=== PATIENT | male | born 1960 | race Caucasian/White ===

== ENCOUNTER 2020-08-25 05:25 | Day surgery (SDC) | payer BC ==
[2020-08-18 14:45] LABS: BASOPHILS # (AUTO) 0.1 X10'3 (0-0.2); BASOPHILS % (AUTO) 0.1 % (0-1); EOSINOPHILS # (AUTO) 0.4 X10'3 (0-0.9); EOSINOPHILS % (AUTO) 0.3 % (0-6); LYMPHOCYTES # (AUTO) 104.9 X10'3 (1.1-4.8); LYMPHOCYTES % (AUTO) 94.8 % (21-51); MEAN CORPUSCULAR HEMOGLOBIN 31.7 PG (27.0-31.0); MEAN CORPUSCULAR HGB CONC 31.6 g/dL (33.0-36.5); MEAN CORPUSCULAR VOLUME 100.3 FL (78-98); MEAN PLATELET VOLUME 9.6 FL (7.4-10.4); MONOCYTES % (AUTO) 1.8 % (2-12); NEUTROPHILS # (AUTO) 3.4 X10'3 (1.8-7.7); PRE OP HEMATOCRIT 47.8 % (42.0-52.0); PRE OP HEMOGLOBIN 15.1 g/dL (14.0-17.9); PRE OP PLATELET COUNT 141 X10'3 (140-440); RED BLOOD COUNT 4.77 X10'6 (4.70-6.10); RED CELL DISTRIBUTION WIDTH 14.2 % (11.5-14.5)
[2020-08-18 14:53] LABS: ALBUMIN 3.9 G/DL (3.4-5.0); ALBUMIN/GLOBULIN RATIO 1.4 (1.1-1.5); ALKALINE PHOSPHATASE 180 IU/L (46-116); BLOOD UREA NITROGEN 21 MG/DL (7-18); BUN/CREATININE RATIO 26.3 (5.4-32.0); CALCIUM 8.6 MG/DL (8.5-10.1); CHLORIDE 108 MMOL/L (99-107); PRE OP ALT 34 U/L (30-65); PRE OP ANION GAP 11 (8-16); PRE OP AST 30 U/L (10-37); PRE OP BILIRUB, TOTAL 0.6 MG/DL (0.0-1.0); PRE OP GLUCOSE 123 MG/DL (70-104); PRE OP POTASSIUM 4.1 MMOL/L (3.4-5.1); PRE OP SODIUM 145 MMOL/L (135-145); TOTAL CARBON DIOXIDE 26.2 MMOL/L (24-32); TOTAL PROTEIN 6.6 G/DL (6.4-8.2); eGFR > 90 ML/MIN
[2020-08-18 16:28] LABS: TOTAL CELLS COUNTED 200
[2020-08-18 16:29] LABS: EOSINOPHILS % (MANUAL) 0 % (0-6); PLATELET ESTIMATE NORMAL; SMUDGE CELLS 3+
[2020-08-18 16:30] LABS: HYPOCHROMASIA 1+
[~2020-08-25] VITALS: Ht 177.8 cm; Wt 99.7 kg
[2020-08-25] VITALS (21 sets, daily range): BP systolic 77–138; BP diastolic 52–94
[~2020-08-25 05:25] MED LIST: CBD PO; CITA20TA28 PO; MULT-1085 PO; OREGANO PO; ZINC50TA67 PO; [UNRECOGNIZED DRUG - MIXTURE] PO; ringers solution, lacted 1,000 ML IV SCH
[2020-08-25] MEDS ORDERED: INDOCYANINE GREEN 25 MG/10 ML VIAL IV ONE ×2 (05:30)
[2020-08-25] MEDS ORDERED: famotidine 20mg tablet PO ONE (05:30)
[2020-08-25] MEDS ORDERED: ceFAZolin 2gm in dextrose, iso 50 ML IV ONE (05:30)
[2020-08-25] MEDS ORDERED: TEST200V10 IM (06:11)
--- NOTE | 2020-08-25 06:30 | NUR ---
IC GREEN BAR CODE WOULD NOT SCAN. ENTERED MANUALLY.
[2020-08-25] MEDS ORDERED: BUPIVAcaine/PF 2.5 mg/ml (0.25%) 30ml vial ONE (06:54)
[2020-08-25] MEDS ORDERED: LIDOcaine 1% 30ml preserv. free vial ONE (06:54)
[2020-08-25] MEDS ORDERED: fentaNYL/PF 50MCG/1 ML 2ML syringe ONE (07:19)
[2020-08-25] MEDS ORDERED: midazolam 2 mg/2 ml injection ONE (07:20)
[2020-08-25] MEDS ORDERED: propofol inj 20 ML IV ONE (07:23)
[2020-08-25] MEDS ORDERED: LIDOcaine 2% (20mg/ml) 5ml vial ONE (07:23)
[2020-08-25] MEDS ORDERED: rocuronium 10mg/ml inj IV ONE (07:23)
[2020-08-25] MEDS ORDERED: sevoflurane 250ml liquid IH ONE (07:34)
[2020-08-25] MEDS ORDERED: proCHLORperazine 10 MG/2 ml inj IV PRN (07:35)
[2020-08-25] MEDS ORDERED: ringers solution, lacted 1,000 ML IV SCH (07:35)
[2020-08-25] MEDS ORDERED: ondansetron/PF 4mg/2ml inj IV PRN (07:35)
[2020-08-25] MEDS ORDERED: morphine 4 MG/ML inj SYRINge IV PRN (07:35)
[2020-08-25] MEDS ORDERED: meperidine/PF 25mg/ml syringe IV PRN ×2 (07:35)
[2020-08-25] MEDS ORDERED: morphine 2 MG/ML inj. syringe IV PRN (07:35)
[2020-08-25] MEDS ORDERED: acetaminophen 1,000mg/100ml IV 100 ML IV ONE (08:35)
[2020-08-25] MEDS ORDERED: neostigmine methylsulfate 1 MG/ML 10ml vial ONE (08:35)
[2020-08-25] MEDS ORDERED: glycopyrrolate 0.2mg/ml inj ONE (08:35)
[2020-08-25] MEDS ORDERED: ondansetron/PF 4mg/2ml inj ONE (08:35)
--- NOTE | 2020-08-25 08:46 | NUR ---
Received from OR via [facility], accompanied by Anesthesiologist DR PAIZ and report given by Anesthesiologist. PT DROWSY, NO S/S OF PAIN, ABDOMEN W/4 LAP SITES W/BANDAIDS CDI. Addendum: 08/25/20 at 0908 by Floresita Mccrary RN Amended: Links added.
[2020-08-25] MEDS ORDERED: HYDROcodone/acetaminophen 10/325mg tab PO PRN (09:15)
[2020-08-25] MEDS ORDERED: HYDROcodone/acetaminophen 5mg/325mg tablet PO PRN (09:15)
[2020-08-25] MEDS: meperidine/PF 25mg/ml syringe IV PRN ×2 (09:16→09:23)
--- NOTE | 2020-08-25 11:31 | NUR ---
PT WAS DOING VERY WELL, DRESSED D/C INSTRUCTIONS GIVEN AND GONE OVER W/PT , PT UP AND AMBULATING, PUT IN W/C FOR D/C TO HOME, WHILE AWAITING FOR PTS RIDE, PT BECAME DIZZY, NAUSEATED, REATTACHED TO CM, HR 60-S, NSR, BP 77/52, SA02 92% ON RA. COOL WASHCLOTH APPLIED TO PTS FACE/HEAD, DR NAIR HERE AND AWARE. PT STATED WAS FEELING BETTER, CRACKERS GIVEN AND A FEW GLASSES OF WATER, AFTER 15 MINUTES OR SO, BP IMPROVED PT FEELING MUCH BETTER. PT UP AND AMBULATED, STEADY ON FEET, OKAY TO D/C HOME, AWAITING RIDE HOME. Addendum: 08/25/20 at 1138 by Floresita Mccrary RN Amended: Links added.
--- NOTE | 2020-08-25 12:16 | NUR ---
PT REMAINS STABLE, UP AND AMBULATING, VOIDED. D/C INSTRUCTIONS GIVEN AND GONE OVER W/PT AND PTS WHO VERBALIZED UNDERSTANDING. PT D/CD TO HOME VIA W/C TO PRIVATE VEHICLE W/O INCIDENT. Addendum: 08/25/20 at 1312 by Floresita Mccrary RN Amended: Links added.
== END 2020-08-25 12:16 | disposition home or self-care (01) ==
LOC: PAS 05:25
PROVIDERS: ATTEND Surgery
DX: K80.10 Calculus of gallbladder with chronic cholecystitis without obstruction (principal); F41.9 Anxiety disorder, unspecified; F32.9 Major depressive disorder, single episode, unspecified; Z98.890 Other specified postprocedural states; Z88.8 Allergy status to other drugs, medicaments and biological substances; Z88.1 Allergy status to other antibiotic agents; G47.33 Obstructive sleep apnea (adult) (pediatric); F17.290 Nicotine dependence, other tobacco product, uncomplicated; Z85.6 Personal history of leukemia; Z88.2 Allergy status to sulfonamides; Z20.822 Contact with and (suspected) exposure to COVID-19; Z79.899 Other long term (current) drug therapy; Z83.2 Family history of diseases of the blood and blood-forming organs and certain disorders involving the immune mechanism; Z81.8 Family history of other mental and behavioral disorders; Z80.6 Family history of leukemia
CPT/HCPCS: 36415; 47563; 80053; 82948; 85025; 87635; 93005; J0131; J2001; J2175; J2250; J2405; J2704; J2710; J3010; J3490; J7120; 85007; A4215; A4618

== ENCOUNTER 2021-08-06 12:20 | Emergency (ER) | payer BC ==
[~2021-08-06] VITALS: Ht 177.8 cm; Wt 91.4 kg
[~2021-08-06 12:20] MED LIST changes: +TEST200V33 IM; -ringers solution, lacted 1,000 ML IV SCH
[2021-08-06] MEDS ORDERED: normal saline 1000ML IV soln IVB ONE (12:45)
[2021-08-06] MEDS ORDERED: acetaminophen 325mg tablet PO ONE ×2 (12:45→17:00)
[2021-08-06 13:19] LABS: BASOPHILS # (AUTO) 0.1 X10'3 (0-0.2); BASOPHILS % (AUTO) 0.1 % (0-1); EOSINOPHILS % (AUTO) 0 % (0-6)
[2021-08-06 13:22] LABS: HEMATOCRIT 46.1 % (42.0-52.0); LYMPHOCYTES # (AUTO) 86.3 X10'3 (1.1-4.8); LYMPHOCYTES % (AUTO) 92.8 % (21-51); MEAN CORPUSCULAR HEMOGLOBIN 31.6 PG (27.0-31.0); MEAN CORPUSCULAR HGB CONC 32.5 g/dL (33.0-36.5); MEAN CORPUSCULAR VOLUME 97.4 FL (78-98); MEAN PLATELET VOLUME 9.6 FL (7.4-10.4); MONOCYTES # (AUTO) 1.5 X10'3 (0-0.9); MONOCYTES % (AUTO) 1.6 % (2-12); NEUTROPHILS # (AUTO) 5.1 X10'3 (1.8-7.7); NEUTROPHILS % (AUTO) 5.5 % (42-75); PLATELET COUNT 130 X10'3 (140-440); RED BLOOD COUNT 4.74 X10'6 (4.70-6.10)
[2021-08-06 13:32] LABS: ALANINE AMINOTRANSFERASE 107 U/L (12-78); ALBUMIN 3.1 G/DL (3.4-5.0); ALKALINE PHOSPHATASE 116 IU/L (46-116); ANION GAP 11 (8-16); ASPARTATE AMINO TRANSFERASE 63 U/L (10-37); BILIRUBIN,TOTAL 0.7 MG/DL (0.1-1.0); BLOOD UREA NITROGEN 13 MG/DL (7-18); BUN/CREATININE RATIO 14.3 (5.4-32.0); CALCIUM 8.2 MG/DL (8.5-10.1); CHLORIDE 102 MMOL/L (99-107); CREATININE 0.91 MG/DL (0.60-1.10); GLUCOSE 147 MG/DL (70-104); POTASSIUM 4.6 MMOL/L (3.5-5.1); SODIUM 135 MMOL/L (135-145); TOTAL CARBON DIOXIDE 22.4 MMOL/L (24-32); TOTAL PROTEIN 6.3 G/DL (6.4-8.2); eGFR 84 ML/MIN
[2021-08-06 13:48] LABS: SMUDGE CELLS 4+; TOTAL CELLS COUNTED 100
[2021-08-06 13:49] LABS: PLATELET ESTIMATE DECREASED
[2021-08-06] MEDS ORDERED: iohexol 350MG/ML 100ml bottle IV ONE (13:52)
[2021-08-06 15:45] LABS: D-DIMER 0.65 MG/L FEU (0-0.50)
[2021-08-06] MEDS ORDERED: BENZ-38 PO ×2 (17:38)
[2021-08-06] MEDS ORDERED: ALB0.5UD IH ×2 (18:02)
[2021-08-06] MEDS ORDERED: GABA-530 PO ×2 (18:02)
[2021-08-06 18:04] VITALS: BP 119/79
== END 2021-08-06 18:06 | disposition home or self-care (01) ==
LOC: ER 12:21
DX: U07.1 COVID-19 (principal); J12.82 Pneumonia due to coronavirus disease 2019; C91.10 Chronic lymphocytic leukemia of B-cell type not having achieved remission; Z88.2 Allergy status to sulfonamides; Z88.6 Allergy status to analgesic agent; Z79.899 Other long term (current) drug therapy
CPT/HCPCS: 36415; 71275; 80053; 83605; 84145; 85007; 85025; 85379; 87040; 87502; 87503; 87635; 93005; 96360; 96361; 99285; C9803; J7030; Q9967

== ENCOUNTER 2021-08-07 21:58 | Inpatient (IN) | payer BC ==
[~2021-08-07] VITALS: Ht 177.8 cm; Wt 93.2 kg
[~2021-08-07 21:58] MED LIST changes: +ALB0.5UD IH; +BENZ-38 PO; +GABA-530 PO
[2021-08-08 00:19] LABS: EOSINOPHILS % (AUTO) 0 % (0-6); LYMPHOCYTES % (AUTO) 90.1 % (21-51); RED BLOOD COUNT 4.56 X10'6 (4.70-6.10)
[2021-08-08 00:22] LABS: BASOPHILS # (AUTO) 0.2 X10'3 (0-0.2); BASOPHILS % (AUTO) 0.2 % (0-1); HEMATOCRIT 44.3 % (42.0-52.0); HEMOGLOBIN 14.1 g/dl (14.0-17.9); LYMPHOCYTES # (AUTO) 82.8 X10'3 (1.1-4.8); MEAN CORPUSCULAR HGB CONC 31.9 g/dL (33.0-36.5); MEAN CORPUSCULAR VOLUME 97.2 FL (78-98); MEAN PLATELET VOLUME 9.8 FL (7.4-10.4); MONOCYTES # (AUTO) 1.5 X10'3 (0-0.9); MONOCYTES % (AUTO) 1.6 % (2-12); NEUTROPHILS # (AUTO) 7.5 X10'3 (1.8-7.7); NEUTROPHILS % (AUTO) 8.1 % (42-75); PLATELET COUNT 148 X10'3 (140-440); RED CELL DISTRIBUTION WIDTH 14.3 % (11.5-14.5)
[2021-08-08 00:38] LABS: ALANINE AMINOTRANSFERASE 85 U/L (12-78); ALBUMIN 2.9 G/DL (3.4-5.0); ALBUMIN/GLOBULIN RATIO 0.9 (1.1-1.5); ALKALINE PHOSPHATASE 139 IU/L (46-116); ANION GAP 8 (8-16); ASPARTATE AMINO TRANSFERASE 65 U/L (10-37); BILIRUBIN,TOTAL 0.6 MG/DL (0.1-1.0); BLOOD UREA NITROGEN 23 MG/DL (7-18); BUN/CREATININE RATIO 19.7 (5.4-32.0); CALCIUM 7.6 MG/DL (8.5-10.1); CHLORIDE 99 MMOL/L (99-107); CREATININE 1.17 MG/DL (0.60-1.10); GLUCOSE 90 MG/DL (70-104); POTASSIUM 4.6 MMOL/L (3.5-5.1); SODIUM 133 MMOL/L (135-145); TOTAL CARBON DIOXIDE 26.1 MMOL/L (24-32); TOTAL PROTEIN 6.2 G/DL (6.4-8.2); eGFR 63 ML/MIN
[2021-08-08 00:39] LABS: ANISOCYTOSIS 1+; PLATELET ESTIMATE NORMAL; SMUDGE CELLS 4+; TOTAL CELLS COUNTED 100
[2021-08-08 00:41] LABS: BILIRUBIN,DIRECT 0.2 MG/DL (0-0.3); LIPASE 186 U/L (73-393)
[2021-08-08] MEDS ORDERED: vancomycin/NS 1 GM ADD-VANTAGE 250 ML IV ONE (01:20)
[2021-08-08] MEDS ORDERED: REMDESIVIR INJ 200 MG in normal saline 100ml IV soln 100 ML IV STA (02:28)
[2021-08-08] MEDS ORDERED: cefepime 1GM/NS ADD-VANTAGE 100 ML IV ONE (02:30)
[2021-08-08] MEDS ORDERED: diltiazem 5mg/ml 5ml inj. IV ONE (02:30)
[2021-08-08] MEDS ORDERED: cefepime 1GM in D5W 50mL 50 ML IV ONE (03:05)
[2021-08-08] MEDS ORDERED: ondansetron/PF 4mg/2ml inj IV PRN (03:40)
[2021-08-08] MEDS ORDERED: potassium CL 10mEq/100ml bag 100 ML IV PRN (03:40)
[2021-08-08] MEDS ORDERED: acetaminophen 325mg tablet PO PRN (03:40)
[2021-08-08] MEDS ORDERED: magnesium Cl slow-release 64mg tablet PO PRN (03:40)
[2021-08-08] MEDS ORDERED: magnesium 2GM in 50ml NS 50 ML IV PRN (03:40)
[2021-08-08] MEDS ORDERED: potassium Cl 20 mEq SR tablet PO PRN ×2 (03:40)
[2021-08-08] MEDS ORDERED: HYDROcodone/acetaminophen 5mg/325mg tablet PO PRN (03:40)
[2021-08-08] MEDS ORDERED: magnesium 4gm in 100ml NS 100 ML IV PRN (03:40)
[2021-08-08] MEDS ORDERED: morphine 2 MG/ML inj. syringe IV PRN (03:40)
[2021-08-08 04:30] VITALS: BP 122/78
[2021-08-08 06:54] LABS: D-DIMER 1.33 MG/L FEU (0-0.50)
[2021-08-08] MEDS ORDERED: dexamethasone 4mg/ml inj IV SCH (08:00)
[2021-08-08] MEDS: K and/or MAG REPLACEMENT MC SCH ×2 (08:00→20:00)
[2021-08-08] MEDS ORDERED: acetaminophen 325mg tablet PO ONE (08:50)
[2021-08-08] MEDS ORDERED: normal saline 1000ml 1,000 ML IV ONE (08:50)
[2021-08-08] MEDS ORDERED: ketorolac trometh. 30mg/ml inj. IV ONE (09:00)
[2021-08-08] MEDS ORDERED: REMDESIVIR INJ 200 MG in normal saline 100ml IV soln 100 ML IV ONE ×2 (10:15→11:40)
[2021-08-08] MEDS ORDERED: CefTRIAXone/D5W-Rocephin 1gm 50 ML IV SCH (10:15)
[2021-08-08] MEDS ORDERED: azithromycin 250mg tablet PO SCH (10:15)
[2021-08-08] MEDS: dexamethasone 6 MG/D5W 100ml IV.soln (total 101.5ml) IV SCH ×4 (10:20→21:22)
[2021-08-08] MEDS: normal saline 1000ml 1,000 ML IV SCH (10:20)
[2021-08-08] MEDS: enoxaparin 40mg/0.4ml syringe SQ SCH ×2 (11:03→21:22)
[2021-08-08] MEDS ORDERED: GABA-530 PO (12:18)
[2021-08-08] MEDS ORDERED: BENZ-49 PO (12:19)
[2021-08-08] MEDS: CefTRIAXone/D5W-Rocephin 1gm 50 ML IV SCH (13:19)
[2021-08-08] MEDS ORDERED: benzonatate 100mg capsule PO PRN (15:45)
--- NOTE | 2021-08-08 16:13 | NUR ---
Report given to DAVEY Andrew, pt going to floor with C-pap from home & cell phone. Pts is taking pts hearing aids and wallet home.
[2021-08-08 18:00] VITALS: BP 122/85
[2021-08-08] MEDS: gabapentin 100mg capsule PO SCH (21:22)
[2021-08-08] MEDS: citalopram 20mg tablet PO SCH (21:22)
[2021-08-08 22:00] VITALS: BP 154/88
[2021-08-09 02:00] VITALS: BP 146/88
[2021-08-09 06:00] VITALS: BP 148/87
[2021-08-09] MEDS ORDERED: REMDESIVIR INJ 100 MG in normal saline 100ml IV soln 100 ML IV SCH (08:00)
[2021-08-09] MEDS: K and/or MAG REPLACEMENT MC SCH ×2 (08:00→20:00)
[2021-08-09] MEDS: CefTRIAXone/D5W-Rocephin 1gm 50 ML IV SCH (08:03)
[2021-08-09] MEDS: dexamethasone 6 MG/D5W 100ml IV.soln (total 101.5ml) IV SCH ×4 (08:03→20:34)
[2021-08-09] MEDS: acetaminophen 325mg tablet PO PRN ×2 (08:03→22:24)
[2021-08-09] MEDS: multivitamins, therapeutics tablet PO SCH (08:04)
[2021-08-09] MEDS: enoxaparin 40mg/0.4ml syringe SQ SCH ×2 (08:04→20:30)
[2021-08-09] MEDS: gabapentin 100mg capsule PO SCH ×3 (08:04→16:43)
[2021-08-09 08:20] LABS: BASOPHILS % (AUTO) 0.2 % (0-1); EOSINOPHILS % (AUTO) 0 % (0-6); MEAN CORPUSCULAR HGB CONC 31.7 g/dL (33.0-36.5); NEUTROPHILS % (AUTO) 8.2 % (42-75)
[2021-08-09 08:25] LABS: BASOPHILS # (AUTO) 0.2 X10'3 (0-0.2); LYMPHOCYTES # (AUTO) 107.1 X10'3 (1.1-4.8); LYMPHOCYTES % (AUTO) 90.2 % (21-51); MEAN CORPUSCULAR HEMOGLOBIN 31.1 PG (27.0-31.0); MEAN CORPUSCULAR VOLUME 97.9 FL (78-98); MEAN PLATELET VOLUME 9.8 FL (7.4-10.4); MONOCYTES # (AUTO) 1.7 X10'3 (0-0.9); MONOCYTES % (AUTO) 1.4 % (2-12); NEUTROPHILS # (AUTO) 9.7 X10'3 (1.8-7.7); PLATELET COUNT 166 X10'3 (140-440); RED BLOOD COUNT 4.18 X10'6 (4.70-6.10); RED CELL DISTRIBUTION WIDTH 14.2 % (11.5-14.5)
[2021-08-09 08:33] LABS: WHITE BLOOD COUNT 118.7 X10'3 (4.5-11.0)
[2021-08-09 08:51] LABS: ALANINE AMINOTRANSFERASE 71 U/L (12-78); ALBUMIN 2.4 G/DL (3.4-5.0); ALKALINE PHOSPHATASE 91 IU/L (46-116); ANION GAP 9 (8-16); ASPARTATE AMINO TRANSFERASE 50 U/L (10-37); BILIRUBIN,TOTAL 0.5 MG/DL (0.1-1.0); BLOOD UREA NITROGEN 17 MG/DL (7-18); BUN/CREATININE RATIO 24.6 (5.4-32.0); C-REACTIVE PROTEIN 13.95 MG/DL (0.0-0.5); CALCIUM 7.2 MG/DL (8.5-10.1); CHLORIDE 105 MMOL/L (99-107); CREATININE 0.69 MG/DL (0.60-1.10); GLUCOSE 158 MG/DL (70-104); LACTATE DEHYDROGENASE 339 U/L (85-227); PHOSPHORUS 2.9 MG/DL (2.3-4.5); POTASSIUM 4.1 MMOL/L (3.5-5.1); SODIUM 137 MMOL/L (135-145); TOTAL CARBON DIOXIDE 22.7 MMOL/L (24-32); TOTAL PROTEIN 4.8 G/DL (6.4-8.2); eGFR > 90 ML/MIN
[2021-08-09 09:07] LABS: D-DIMER 0.74 MG/L FEU (0-0.50)
[2021-08-09 15:40] LABS: ANISOCYTOSIS 1+; PLATELET ESTIMATE NORMAL; TOTAL CELLS COUNTED 100
[2021-08-09 15:41] LABS: SMUDGE CELLS 4+
--- NOTE | 2021-08-09 17:45 | NUR ---
Mr Rodriguez has been assessed as indicated he has been found to be both pleasant and cooperative. He uses CPAP from home most of the day. His was in to see him and assisted him with bathing. He was successfully treated for a head ache x1 this shift. He also finds comfort in having a bag of ice on his head. He does experince some shortness of breath with exertion. He is presently resting quietly
[2021-08-09 18:45] VITALS: BP 141/89
--- NOTE | 2021-08-09 19:25 | NUR ---
Patient in room ORTHO 4013. I have received report from floridalma Andrew and had the opportunity to ask questions and assume patient care. Pt. resting quietly in bed, no c/o voiced at this time.
[2021-08-09] MEDS: citalopram 20mg tablet PO SCH (20:32)
[2021-08-09 22:00] VITALS: BP 148/78
[2021-08-10] MEDS: gabapentin 100mg capsule PO SCH ×4 (00:28→22:17)
[2021-08-10 02:00] VITALS: BP 138/90
[2021-08-10] MEDS: normal saline 1000ml 1,000 ML IV SCH (04:20)
[2021-08-10 06:00] VITALS: BP 140/88
--- NOTE | 2021-08-10 06:26 | NUR ---
Problems reprioritized. Patient report given, questions answered & plan of care reviewed with DAVEY James. .
[2021-08-10 07:39] LABS: BASOPHILS % (AUTO) 0.1 % (0-1); EOSINOPHILS % (AUTO) 0 % (0-6); MEAN CORPUSCULAR HEMOGLOBIN 30.3 PG (27.0-31.0); MEAN CORPUSCULAR HGB CONC 31.2 g/dL (33.0-36.5)
[2021-08-10 07:42] LABS: BASOPHILS # (AUTO) 0.1 X10'3 (0-0.2); HEMATOCRIT 39.8 % (42.0-52.0); HEMOGLOBIN 12.4 g/dl (14.0-17.9); LYMPHOCYTES # (AUTO) 115.3 X10'3 (1.1-4.8); LYMPHOCYTES % (AUTO) 89.3 % (21-51); MEAN CORPUSCULAR VOLUME 97.4 FL (78-98); MEAN PLATELET VOLUME 9.7 FL (7.4-10.4); MONOCYTES # (AUTO) 3.3 X10'3 (0-0.9); MONOCYTES % (AUTO) 2.5 % (2-12); NEUTROPHILS # (AUTO) 10.5 X10'3 (1.8-7.7); NEUTROPHILS % (AUTO) 8.1 % (42-75); PLATELET COUNT 197 X10'3 (140-440); RED BLOOD COUNT 4.09 X10'6 (4.70-6.10); RED CELL DISTRIBUTION WIDTH 14.4 % (11.5-14.5)
[2021-08-10 07:50] LABS: ALANINE AMINOTRANSFERASE 68 U/L (12-78); ALBUMIN 2.3 G/DL (3.4-5.0); ALBUMIN/GLOBULIN RATIO 0.9 (1.1-1.5); ANION GAP 8 (8-16); ASPARTATE AMINO TRANSFERASE 41 U/L (10-37); BILIRUBIN,TOTAL 0.6 MG/DL (0.1-1.0); BLOOD UREA NITROGEN 21 MG/DL (7-18); BUN/CREATININE RATIO 29.6 (5.4-32.0); C-REACTIVE PROTEIN 6.91 MG/DL (0.0-0.5); CALCIUM 7.3 MG/DL (8.5-10.1); CHLORIDE 109 MMOL/L (99-107); CREATININE 0.71 MG/DL (0.60-1.10); GLUCOSE 146 MG/DL (70-104); LACTATE DEHYDROGENASE 300 U/L (85-227); MAGNESIUM 2.4 MG/DL (1.5-2.4); PHOSPHORUS 3.9 MG/DL (2.3-4.5); POTASSIUM 4.4 MMOL/L (3.5-5.1); SODIUM 141 MMOL/L (135-145); TOTAL CARBON DIOXIDE 24.1 MMOL/L (24-32); TOTAL PROTEIN 4.8 G/DL (6.4-8.2); WHITE BLOOD COUNT 129.2 X10'3 (4.5-11.0); eGFR > 90 ML/MIN
[2021-08-10] MEDS: K and/or MAG REPLACEMENT MC SCH ×2 (08:00→19:49)
[2021-08-10] MEDS: CefTRIAXone/D5W-Rocephin 1gm 50 ML IV SCH (08:20)
[2021-08-10] MEDS: dexamethasone 6 MG/D5W 100ml IV.soln (total 101.5ml) IV SCH ×2 (08:20)
[2021-08-10] MEDS: enoxaparin 40mg/0.4ml syringe SQ SCH ×2 (08:22→19:58)
[2021-08-10] MEDS: multivitamins, therapeutics tablet PO SCH (08:22)
[2021-08-10 12:47] LABS: TOTAL CELLS COUNTED 100
[2021-08-10 12:48] LABS: ANISOCYTOSIS 1+; PLATELET ESTIMATE NORMAL; SMUDGE CELLS 4+
[2021-08-10 15:40] VITALS: BP 128/76
--- NOTE | 2021-08-10 16:42 | NUR ---
Page to Dr Hu Message: [id number] Christopher Rodriguez- Wishes to be full code. Shaye [phone]
[2021-08-10 18:00] VITALS: BP 124/93
--- NOTE | 2021-08-10 18:15 | NUR ---
Problems reprioritized. Patient report given, questions answered & plan of care reviewed with Dylan MARISCAL.
[2021-08-10] MEDS: acetaminophen 325mg tablet PO PRN (19:57)
[2021-08-10 22:00] VITALS: BP 141/90
[2021-08-10] MEDS: citalopram 20mg tablet PO SCH (22:17)
[2021-08-11 02:00] VITALS: BP 125/80
[2021-08-11 06:00] VITALS: BP 132/84
--- NOTE | 2021-08-11 06:30 | NUR ---
Patient in room U 3015. I have received report from Dylan MARISCAL and had the opportunity to ask questions and assume patient care. Patient comfortably sleeping during report. No needs at this time.
[2021-08-11 07:15] LABS: EOSINOPHILS % (AUTO) 0 % (0-6)
[2021-08-11 07:19] LABS: D-DIMER 0.42 MG/L FEU (0-0.50)
[2021-08-11 07:22] LABS: BASOPHILS # (AUTO) 0.1 X10'3 (0-0.2); BASOPHILS % (AUTO) 0 % (0-1); HEMATOCRIT 41.3 % (42.0-52.0); HEMOGLOBIN 12.6 g/dl (14.0-17.9); LYMPHOCYTES # (AUTO) 123.4 X10'3 (1.1-4.8); LYMPHOCYTES % (AUTO) 92.2 % (21-51); MEAN CORPUSCULAR HEMOGLOBIN 30.1 PG (27.0-31.0); MEAN CORPUSCULAR HGB CONC 30.6 g/dL (33.0-36.5); MEAN CORPUSCULAR VOLUME 98.4 FL (78-98); MEAN PLATELET VOLUME 9.6 FL (7.4-10.4); MONOCYTES # (AUTO) 1.3 X10'3 (0-0.9); NEUTROPHILS # (AUTO) 9.1 X10'3 (1.8-7.7); NEUTROPHILS % (AUTO) 6.8 % (42-75); PLATELET COUNT 206 X10'3 (140-440); RED BLOOD COUNT 4.19 X10'6 (4.70-6.10); RED CELL DISTRIBUTION WIDTH 14.4 % (11.5-14.5)
[2021-08-11 07:27] LABS: WHITE BLOOD COUNT 133.9 X10'3 (4.5-11.0)
[2021-08-11 07:50] LABS: ALANINE AMINOTRANSFERASE 114 U/L (12-78); ALBUMIN 2.4 G/DL (3.4-5.0); ALBUMIN/GLOBULIN RATIO 0.9 (1.1-1.5); ANION GAP 9 (8-16); ASPARTATE AMINO TRANSFERASE 73 U/L (10-37); BILIRUBIN,TOTAL 0.7 MG/DL (0.1-1.0); BLOOD UREA NITROGEN 20 MG/DL (7-18); BUN/CREATININE RATIO 26.3 (5.4-32.0); C-REACTIVE PROTEIN 3.47 MG/DL (0.0-0.5); CALCIUM 7.4 MG/DL (8.5-10.1); CHLORIDE 108 MMOL/L (99-107); CREATININE 0.76 MG/DL (0.60-1.10); GLUCOSE 225 MG/DL (70-104); LACTATE DEHYDROGENASE 303 U/L (85-227); MAGNESIUM 2.2 MG/DL (1.5-2.4); PHOSPHORUS 3.7 MG/DL (2.3-4.5); POTASSIUM 4.5 MMOL/L (3.5-5.1); SODIUM 139 MMOL/L (135-145); TOTAL CARBON DIOXIDE 22.5 MMOL/L (24-32); eGFR > 90 ML/MIN
--- NOTE | 2021-08-11 07:57 | NUR ---
Critical WBC Paged Dr Hu Page Accepted Message: Room 3011F: Christopher Rodriguez: Critical WBC 133.4, up from yesterdays of 129.2. [place] [id number]
[2021-08-11] MEDS ORDERED: dexamethasone inj 5 MG in dextrose 5%-water 100 ML IV SCH (08:00)
[2021-08-11] MEDS: K and/or MAG REPLACEMENT MC SCH (08:00)
[2021-08-11] MEDS: CefTRIAXone/D5W-Rocephin 1gm 50 ML IV SCH (09:39)
[2021-08-11] MEDS: enoxaparin 40mg/0.4ml syringe SQ SCH (09:40)
[2021-08-11] MEDS: gabapentin 100mg capsule PO SCH ×2 (09:40→16:06)
[2021-08-11] MEDS: multivitamins, therapeutics tablet PO SCH (09:40)
[2021-08-11 11:00] VITALS: BP 130/77
[2021-08-11 12:37] LABS: TOTAL CELLS COUNTED 100
[2021-08-11 12:39] LABS: PLATELET ESTIMATE NORMAL; SMUDGE CELLS 4+
[2021-08-11 12:40] LABS: BURR CELLS FEW; POIKILOCYTOSIS FEW
--- NOTE | 2021-08-11 12:41 | NUR ---
Initial: Pt admit dx COVID PNA w/ a hx of CLL and CKD stage 3 per EMR. Pt currently on regular diet w/ avg PO intake 89% and meeting calorie needs, partially meeting estimated protein needs. Pt would benefit from smoothies BID to assist meeting needs, dietary notified. LBM 08/10 per EMR. Will continue to monitor. Recommendations: 1. Continue regular diet 2. Smoothies BID 3. Routine bowel care 4. Scaled wt this admit, subsequent weekly scaled wts Addendum: 08/11/21 at [address] Amended: Links added. Addendum: 08/11/21 at [address] [facility] has reviewed and approves of above note.
[2021-08-11] MEDS ORDERED: DEXA1TAB PO (14:07)
[2021-08-11] MEDS ORDERED: ASPI-611 PO (14:13)
[2021-08-11] MEDS ORDERED: CEFD300C3 PO (18:09)
--- NOTE | 2021-08-11 18:12 | NUR ---
Patient is stable per Dr Hu. Patient was educated on his diagnosis and new medications, given opportunity to ask questions, all questions answered. PIV was removed with canula intact. Telemetry monitoring was discontinued. All patient belongings were packed up and patient was wheeled down by RN to car to go home with spouse.
== END 2021-08-11 16:10 | disposition home or self-care (01) | DRG 177 ==
LOC: ER 21:59 → ED HOLD 08-08 03:45 → ORTHO 4S 08-08 16:45 → PCU 3S 08-10 15:40
PROVIDERS: ADMIT Internal Medicine; ATTEND Family Medicine
DX: U07.1 COVID-19 (principal); J12.82 Pneumonia due to coronavirus disease 2019; J96.01 Acute respiratory failure with hypoxia; C91.10 Chronic lymphocytic leukemia of B-cell type not having achieved remission; R74.01 Elevation of levels of liver transaminase levels; I48.91 Unspecified atrial fibrillation; N18.30 Chronic kidney disease, stage 3 unspecified; Z88.2 Allergy status to sulfonamides; Z88.6 Allergy status to analgesic agent; Z79.899 Other long term (current) drug therapy
CPT/HCPCS: 36415; 71045; 80048; 80053; 80076; 83605; 83615; 83690; 83735; 84100; 84145; 84484; 85007; 85025; 85379; 86140; 87040; 93005; 99291; G0378; J0692; J0696; J1100; J1650; J1885; J3370; J3490; J7030; J7060